=== PATIENT | female | born 1970 | race African-American/Black ===

== ENCOUNTER 2024-09-20 18:58 | Emergency (ER) | payer OTHER, SELFPAY ==
[2024-09-20 19:03] VITALS: BP 125/67; PULSE 76; TEMP 37.1; O2SAT 99; BMI 45.8
--- NOTE | 2024-09-20 19:19 | PC.NURSE ---
lower back pain and bilat hip daria reported. no bruising or swelling to sites of complaints. pt ambulated to Er rm 7 with no problem.
--- NOTE | 2024-09-20 19:26 | ED.BACK1 ---
HPI HPI - Back Pain/Injury General Chief Complaint: Back Pain/Injury Stated Complaint: BACK AND HIP PAIN, FELL A MONTH AGO Time Seen by Provider: 09/20/24 19:21 Source: patient Mode of arrival: walk-in History of Present Illness HPI Narrative: patient states she tripped outdoors about one month ago. Fell onto her left side. Pain of her lower back and left hip. Has been seeing a chiropractor for the past month and had her back and left hip adjusted. Her pain has increased. Taken Ralafen once per day and tylenol arthritis without relief Related Data Home Medications ?Medication ?Instructions ?Recorded ?Confirmed bupropion HCl 150 mg 24 hr tablet, 150 mg PO DAILY 09/20/24 09/20/24 extended release chlorthalidone 25 mg tablet 25 mg PO DAILY 09/20/24 09/20/24 ferrous sulfate 325 mg (65 mg 325 mg PO QAM 09/20/24 09/20/24 iron) tablet fexofenadine 180 mg tablet 180 mg PO QAM 09/20/24 09/20/24 montelukast 10 mg tablet 10 mg PO QPM 09/20/24 09/20/24 nabumetone 500 mg tablet 500 mg PO BID 09/20/24 09/20/24 nystatin 100,000 unit/gram topical 1 applic topical TID 09/20/24 09/20/24 powder paroxetine HCl 20 mg tablet 20 mg PO QAM 09/20/24 09/20/24 prednisone 5 mg tablet 5 mg PO QAM 09/20/24 09/20/24 tolterodine 4 mg capsule,extended 4 mg PO QAM 09/20/24 09/20/24 release 24 hr topiramate 200 mg capsule 200 mg PO BID 09/20/24 09/20/24 sprinkle,extended release 24 hr Allergies Allergy/AdvReac Type Severity Reaction Status Date / Time No Known Drug Allergies Allergy Verified 09/20/24 19:08 Review of Systems ROS Status of ROS 10 or more systems reviewed and unremarkable except as noted in history and below PFSH PFSH Social History Little interest or pleasure in doing things: not at all Feeling down, depressed, or hopeless: not at all Exam Constitutional Vital Signs, click to edit/add: Last Vital Signs Temp 98.7 F 09/20/24 19:03 Pulse 62 09/20/24 22:05 Resp 16 09/20/24 22:05 BP 147/72 H 09/20/24 22:05 Pulse Ox 96 09/20/24 22:05 O2 Del Method Room Air 09/20/24 19:03 Common normals: no apparent distress, oriented x3, no limitations, healthy appearing, alert and well nourished [facility] Common normals: normocephalic Eye Common normals: PERRL and EOMs intact bilaterally Respiratory Common normals: normal respiratory effort, no retractions, no use of accessory muscles and clear to auscultation bilaterally Cardio Common normals: regular rate, regular rhythm, S1 normal heart sound and S2 normal heart sound Back & Pelvis Other: gen. nonspecific tenderness of L-spine Extremity Other: left hip tender Neuro Common normals: oriented x3, CN's II-XII intact bilaterally, moves all extremities and no focal motor deficits Psych Appearance: grossly normal Course Vital Signs Vital signs: Vital Signs Temperature 98.7 F 09/20/24 19:03 Pulse Rate 76 09/20/24 19:03 Respiratory Rate 18 09/20/24 19:03 Blood Pressure 125/67 09/20/24 19:03 Pulse Oximetry 99 09/20/24 19:03 Oxygen Delivery Method Room Air 09/20/24 19:03 Temperature 98.7 F 09/20/24 19:03 Pulse Rate 62 09/20/24 22:05 Respiratory Rate 16 09/20/24 22:05 Blood Pressure 147/72 H 09/20/24 22:05 Pulse Oximetry 96 09/20/24 22:05 Oxygen Delivery Method Room Air 09/20/24 19:03 MDM - Back Pain/Injury MDM Narrative Medical decision making narrative: ground level fall one month ago onto her left hip area. lower back and left hip pain ever since. Has seen chiropractor several times and feels the pain is worse. Has nonspecific tenderness of her L-spine and left hip tenderness. labs WNL except elevated sed rate and CRP. xrays of L-spine and left hip/pelvis per radiology without acute findings. Patient informed of results of her labs and xrays. discharged home to follow up with her doctor for recheck Lab Data Labs: Lab Results 09/20/24 Range/Units 19:38 WBC 5.9 (4.0-11.0) 10^3/uL RBC 3.98 L (4.20-5.40) 10^6/uL Hgb 11.6 L (12.0-16.0) g/dL Hct 35.6 L (36.0-48.0) % MCV 89.4 (81.0-99.0) fL MCH 29.1 (26.7-34.0) pg MCHC 32.6 (29.9-35.2) g/dL RDW 12.4 (11.0-15.0) % Plt Count 227 (150-450) 10^3/uL MPV 10.1 (9.5-13.5) fL Neut % (Auto) 54.2 (43.0-75.0) % Lymph % (Auto) 35.8 (20.5-60.0) % Garden % (Auto) 6.0 (1.7-12.0) % Eos % (Auto) 3.6 (0.9-7.0) % Baso % (Auto) 0.2 (0.2-2.0) % Neut # (Auto) 3.2 (1.4-6.5) 10^3/uL Lymph # (Auto) 2.1 (1.2-3.8) 10^3/uL Garden # (Auto) 0.4 (0.3-0.8) 10^3/uL Eos # (Auto) 0.2 (0.0-0.7) 10^3/uL Baso # (Auto) 0.0 (0.0-0.1) 10^3/uL Abs Immat Gran (auto) 0.01 (0.00-0.03) 10^3/uL Imm/Tot Granulo (auto) 0.2 (0.0-0.5) % ESR 92 H (<=30) mm/hr Sodium 144 (136-145) mmol/L Potassium 3.6 (3.5-5.1) mmol/L Chloride 106 (98-107) mmol/L Carbon Dioxide 29.4 (21.0-32.0) mmol/L Anion Gap 12.2 BUN 11.0 (7.0-18.0) mg/dL Creatinine 0.68 (0.55-1.02) mg/dL Est GFR ( Amer) >60 (>=60 mL/min/1.73m^2) Est GFR (Non-Af Amer) >60 (>=60 mL/min/1.73m^2) BUN/Creatinine Ratio 16.2 Glucose 113 H (74-106) mg/dL Calcium 8.8 (8.5-10.1) mg/dL C-Reactive Protein 1.10 H (<=0.50) mg/dL Discharge Plan Discharge Chief Complaint: Back Pain/Injury Clinical Impression: Strain of lumbar region, Contusion of hip, left Patient Disposition: Home, Self-Care Print Language: Luxembourgish Instructions: Low Back Strain (ED), Hip Contusion (ED) Referrals: Physician,Non-Staff, MD [Physician] - 1 week
[2024-09-20 19:48] LABS: Basophils Percent Auto 0.2 % (0.2-2.0); Eosinophils Absolute Auto 0.2 10^3/uL (0.0-0.7); Eosinophils Percent Auto 3.6 % (0.9-7.0); Hematocrit 35.6 % (36.0-48.0); Hemoglobin 11.6 g/dL (12.0-16.0); Immature Granulocytes Abs Auto 0.01 10^3/uL (0.00-0.03); Immature Granulocytes Pct Auto 0.2 % (0.0-0.5); Lymphocytes Absolute Auto 2.1 10^3/uL (1.2-3.8); Lymphocytes Percent Auto 35.8 % (20.5-60.0); Mean Corpuscular HGB Conc 32.6 g/dL (29.9-35.2); Mean Corpuscular Hemoglobin 29.1 pg (26.7-34.0); Mean Corpuscular Volume 89.4 fL (81.0-99.0); Mean Platelet Volume 10.1 fL (9.5-13.5); Monocytes Absolute Auto 0.4 10^3/uL (0.3-0.8); Neutrophils Absolute Auto 3.2 10^3/uL (1.4-6.5); Neutrophils Percent Auto 54.2 % (43.0-75.0); Platelet Count 227 10^3/uL (150-450); Red Blood Count 3.98 10^6/uL (4.20-5.40); Red Cell Distribution Width 12.4 % (11.0-15.0); White Blood Count 5.9 10^3/uL (4.0-11.0)
[2024-09-20 19:52] LABS: Erythrocyte Sedimentation Rate 92 mm/hr (<=30)
[2024-09-20 19:57] LABS: Anion Gap 12.2; BUN Creatinine Ratio 16.2; Calcium 8.8 mg/dL (8.5-10.1); Carbon Dioxide 29.4 mmol/L (21.0-32.0); Chloride 106 mmol/L (98-107); Estimated GFR (African America >60 (>=60 mL/min/1.73m^2); Estimated GFR (Non-African Ame >60 (>=60 mL/min/1.73m^2); Glucose 113 mg/dL (74-106); Potassium 3.6 mmol/L (3.5-5.1); Sodium 144 mmol/L (136-145)
[2024-09-20] MEDS: METHYLPREDNISOLONE SOD SUCC PF 125 MG/2 ML VIAL IVP (21:09)
[2024-09-20 22:05] VITALS: BP 147/72; PULSE 62; O2SAT 96
[2024-09-20] MEDS: HYDROCODONE/ACET 5-325 MG TABLET 2 TAB PO (23:19)
== END 2024-09-20 23:24 | disposition home or self-care (01) ==
PROVIDERS: Emergency Provider Internal Medicine; PCP Student in an Organized Health Care Education/Training Program
DX: S39.012A Strain of muscle, fascia and tendon of lower back, initial encounter (principal); S70.02XA Contusion of left hip, initial encounter; W01.0XXA Fall on same level from slipping, tripping and stumbling without subsequent striking against object, initial encounter
CPT/HCPCS: 36415; 72100; 73502; 80048; 85025; 85652; 86140; 96374; 99285; J2919

== ENCOUNTER 2024-12-01 11:59 | Emergency (ER) | payer OTHER, SELFPAY ==
[2024-12-01] VITALS (43 sets, daily range): BP systolic 102–131; BP diastolic 55–76; PULSE 100–122; TEMP 36.8; O2SAT 94–95; BMI 41.6
--- OUTSIDE RECORDS SUMMARY | 2024-12-01 12:06 | XMS_ITS | Continuity of Care Document ---
Author Organization [facility] Address [address] [place] [address] Insurance Providers Payer Plan Claims Address Claims Phone Policy Number Group Number Relation Employer Guarantor Name Guarantor Guarantor Address Guarantor Phone [employer] [address], [place] [address] tel:[phone] Self Eun Brush [address] [place] [address] Problems Unknown Problems Results No Results Allergies, adverse reactions, alerts No known allergies and adverse reactions Medications No administered medications reported Vital Signs Date Vital Result Comment 10/03/2022 Body Height [id number] m Body Weight 127.26242489239 kg Body Mass Index 46.59 kg/m2 Social History No smoking Hx information available
--- OUTSIDE RECORDS SUMMARY | 2024-12-01 12:06 | XMS_ITS | Encounter Summary ---
Author Organization [employer] Address [id number] [address] [place] [address] Care Team Providers Care Over The Road Driver Name Role Phone Blu Dodson MD Primary Care Provider Reason for Visit * Reason Onset Date Comments Med Refill 07/24/2024 Encounter Details Date Type Department Care Team (Late st Contact Info) Description 07/24/2024 Refill [facility] [address] [place] [phone] Saravanan Frank, PABarbC [address] [facility], [facility] [address] [place] [phone] Chronic mixed headache syndrome; Migraine without status migrainosus, not intractable, unspecified migraine type Social History Tobacco Use Types Packs/Day Years Used Date Smoking Tobacco: Never Smokeless Tobacco: Never Alcohol Use Standard Drinks/Week Comments Not Currently 0 (1 standard drink = 0.6 oz pur e alcohol) Overall Financial Resource Strain (CARDIA) Answe r Date Recorded How hard is it for you to pa y for the very basics like food, housing, medical care, and heating? Not hard at all 01/02/2023 PHQ-2 Answer Date Recorded Total Score 0 11/12/2023 PRAPARE - Transportation Answer Date Re corded In the past 12 months, has l ack of transportation kept you from medical appointments or from getting medications? No 12/15 In the past 12 months, has l ack of transportation kept you from meetings, work, or from getting things needed for daily living? No 01/02/2023 Housing Instability Answer Date Recorde d Are you worried or concerned that in the next two months you may not have stable housing that you own, rent or stay in as a part of a household? No 01/02/2023 Childcare Answer Date Recorded Childcare Unknown 09/25/2018 Employment Answer Date Recorded Employment Unknown 09/25/2018 Hunger Screening Answer Date Recorded Within the past 12 months we worried whether our food would run out before we got money to buy more. Never True 05/09/2024 Within the past 12 months th e food we bought just didn't last and we didn't have money to get more. Never True 05/09/2024 Purpose - Life Answer Date Recorded Purpose and direction in life Unknown Comments No Sex and Gender Information Value Date Recorded Sex Assigned at Not on file Legal Sex Female 12:01 PM EDT Gender Identity Not on file Sexual Orientation Not on file documented as of this encounter Miscellaneous Notes * Telephone Encounter - Alice Rose RN - 07/24/2024 9:49 AM EDT Topamax and Imitrex scripts sent to [facility] on 05/09/24 with 5 refills. Too soon to fill. documented in this encounter Plan of Treatment Upcoming Encounters Date Type Department Care Team (Late st Contact Info) Description 12/16/2024 3:00 PM EDT Office Visit [facility] [place] [address] Saravanan Frank PA-C [address] [facility], [facility] [address] [place] [address] documented as of this encounter Visit Diagnoses Diagnosis Chronic mixed headache syndrome Other headache syndromes Migraine without status migrainosus, not intractable, unspecified migraine type documented in this encounter Additional Health Concerns Assessment Noted Time PHQ-9 Depression Total Score: 0 11/12/19 3:55 PM EDT A Body Mass Index follow-up plan has been documented for the patient 05/05/2024 7:55 PM EST documented as of this encounter Care Teams Over The Road Driver Relationship Specialty Start Date End Date Blu Dodson MD [address] [facility] [place] [address] PCP - General Internal Medicine 11/23/22 documented as of this encounter
--- OUTSIDE RECORDS SUMMARY | 2024-12-01 12:06 | XMS_ITS | Clinical Summary ---
Author Organization [employer] Address [facility] [id number] [address] [place] [address] Care Team Providers Care Supervisor Slashing Department Name Role Phone Blu Dodson MD Primary Care Provider [phone] Allergies No known active allergies Medications acetaminophen (TYLENOL ARTHRITIS) 650 mg 8 hr tablet Active traMADoL (ULTRAM) 50 mg tabletIndications: Osteoarthritis of knee, unspecified laterality, unspecified osteoarthritis type Take 1 tablet (50 mg total) by mouth daily as needed for pain. Max 1 per day 30 tablet 02/03/20 24 Active SUMAtriptan (IMITREX) 100 mg tabletIndications: Migraine without status migrainosus, not intractable, unspecified migraine type Take 1 tablet (100 mg total) by mouth once as needed for migraine. May repeat in 2 hours if unresolved. Do not exceed 200 mg in 24 hours. 9 tablet 5 05/09/19 25 Active fexofenadine (MARGIE) 180 mg tablet Take 1 tablet (180 mg total) by mouth in the morning. 30 tablet 2 07/25/19 25 Active predniSONE (DELTASONE) 5 mg tabletIndications: Reading's disease (CMS-HCC) Take 1 tablet (5 mg total) by mouth in the morning. 30 tablet 2 07/25/19 25 Active ferrous sulfate 325 (65 FE) mg EC tablet Take 1 tablet (325 mg total) by mouth daily with breakfast. 30 tablet 2 07/25/19 25 Active montelukast (SINGULAIR) 10 mg tablet Take 1 tablet (10 mg total) by mouth nightly. 30 tablet 2 07/25/19 25 Active fluticasone propionate (FLONASE) 50 mcg/actuation nasal spray Administer 2 sprays into each nostril in the morning. 16 mL 2 07/25/19 25 Active PARoxetine (PAXIL) 20 mg tabletIndications: Vasomotor symptoms due to menopause Take 1 tablet (20 mg total) by mouth in the morning. 30 tablet 2 07/25/19 25 Active traZODone (DESYREL) 50 mg tabletIndications: Primary insomnia Take 1 tablet (50 mg total) by mouth nightly. 90 tablet 07/25/19 25 Active chlorthalidone (HYGROTON) 25 mg tablet Take 1 tablet (25 mg total) by mouth daily. 90 tablet 07/25/19 25 Active levothyroxine (SYNTHROID, LEVOTHROID) 25 MCG tabletIndications: Hypothyroidism, unspecified type Take 1 tablet (25 mcg total) by mouth in the morning. 30 tablet 2 07/25/19 25 Active tolterodine LA (DETROL LA) 4 mg 24 hr capsule Take 1 capsule (4 mg total) by mouth in the morning. 90 capsule 2 07/25/19 25 Active topiramate 200 mg capsule,Luther forte 24hrIndications:Mi graine without status migrainosus, not intractable, unspecified migraine type Take 200 mg by mouth in the evening. 90 each 1 08/16/19 25 Active nystatin (MYCOSTATIN) powderIndications: Dermatitis Apply 1 Application topically in the morning and 1 Application at noon and 1 Application in the evening and 1 Application before bedtime. 240 g 3 10/03/19 25 Active buPROPion XL (WELLBUTRIN XL) 150 mg 24 hr tabletIndications: Dysthymia TAKE 1 TABLET BY MOUTH ONCE DAILY IN THE MORNING 90 tablet 1 10/11/19 25 Active naproxen (EC NAPROSYN) 500 mg EC tabletIndications: Sacroiliac dysfunction,Lumbar paraspinal muscle spasm TAKE 1 TABLET BY MOUTH TWICE DAILY WITH MEALS (MORNING AND BEDTIME) 60 tablet 10/21/19 25 Active tiZANidine (ZANAFLEX) 2 mg tabletIndications: Sacroiliac dysfunction,Lumbar paraspinal muscle spasm Take 1 tablet (2 mg total) by mouth every 8 (eight) hours as needed for muscle spasms. 30 tablet 11/25/19 25 Active tiZANidine (ZANAFLEX) 2 mg tabletIndications: Sacroiliac dysfunction,Lumbar paraspinal muscle spasm Take 1 tablet (2 mg total) by mouth every 8 (eight) hours as needed for muscle spasms. 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 Morbid obesity 02/05/2024 Benign intracranial hypertension 02/05/2024 Arthritis 11/13/2022 Osteoarthritis of knee 11/13/2022 Encounters Date Type Department Care Team Description 11/20/2024 Refill [facility] [address] [place] [phone] Stanley Marrufo DO Sacroiliac dysfunction; Lumbar paraspinal muscle spasm 10/18/2024 Refill [facility] [address] [place] [phone] Stanley Marrufo DO Sacroiliac dysfunction; Lumbar paraspinal muscle spasm 10/10/2024 Refill [facility] [address] [place] [phone] Melba Henderson APRN-CHRISTINA Dysthymia 10/02/2024 2:30 PM EDT Office Visit [facility] [address] [place] [phone] Stanley Marrufo DO Dermatitis (Primary Dx); Osteoarthritis of knee, unspecified laterality, unspecified osteoarthritis type; Sacroiliac dysfunction; Lumbar paraspinal muscle spasm 10/02/2024 Refill [facility] Medicine [address] [place] [phone] Yolanda Schaefer CNA 10/02/2024 Refill [facility] [address] [place] [phone] Yolanda Schaefer CNA Osteoarthritis of knee, unspecified laterality, unspecified osteoarthritis type 10/02/2024 Travel 09/23/2024 9:00 AM EDT Office Visit [facility] [address] [place] [address] Stanley Marrufo, Sacroiliac dysfunction (Primary Dx); Lumbar paraspinal muscle spasm 09/23/2024 Travel 09/19/2024 Travel from Last 3 Months Family History Medical History Relation Name Comments Alcohol abuse Father Lai Diabetes Father Lai Drug abuse Father Lai Heart attack Father Lai Heart block Father Lai Arthritis Maternal Grandfather Keith Arthritis Maternal Grandmother Misa Hypertension Maternal Grandmother Misa Alcohol abuse Mother Thelma Kidney cancer Paternal Grandfather Breast cancer Neg Hx Relation Name Status Comments Father Lai Maternal Grandfather Keith Alive Maternal Grandmother Misa Alive Mother Thelma Alive Paternal Grandfather Social History Tobacco Use Types Packs/Day Years Used Date Smoking Tobacco: Never Smokeless Tobacco: Never Tobacco Cessation:Counseling Given: Not Answered Alcohol Use Standard Drinks/Week Comments Not Currently 0 (1 standard drink = 0.6 oz pur e alcohol) Overall Financial Resource Strain (CARDIA) Answe r Date Recorded How hard is it for you to pa y for the very basics like food, housing, medical care, and heating? Not hard at all 01/02/2023 PHQ-2 Answer Date Recorded Total Score 0 10/02/2024 PRAPARE - Transportation Answer Date Re corded [...] got money to buy more. Never True 10/02/2024 Within the past 12 months th e food we bought just didn't last and we didn't have money to get more. Never True 10/02/2024 Purpose - Life Answer Date Recorded Purpose and direction in life Unknown Comments No Sex and Gender Information Value Date Recorded Sex Assigned at Not on file Legal Sex Female 12:01 PM EDT Gender Identity Not on file Sexual Orientation Not on file Last Filed Vital Signs Vital Sign Reading Time Taken Comments Blood Pressure 120/80 10/02/2024 2:37 PM EDT Pulse 91 10/02/2024 2:37 PM EDT Temperature 36.7 C (98.1 F) 10/02/2024 2:37 PM EDT Respiratory Rate 20 01/12/2023 3:17 PM EDT Oxygen Saturation 98% 10/02/2024 2:37 PM EDT Inhaled Oxygen Concentration - - Weight 120 kg (264 lb 9.6 oz) 10/02/2024 2:37 PM EDT Height 162.6 cm (5' 4 ) 08/15/2024 11:38 AM EDT Body Mass Index 45.42 08/15/2024 11:38 AM EDT Plan of Treatment Upcoming Encounters Date Type Department Care Team (Late st Contact Info) Description 12/16/2024 3:00 PM EDT Office Visit [facility] [place] [address] [place] [address] Saravanan Frank, PABarbC [address] [facility] [address] [place] [phone] Health Maintenance Due Date Last Done Comments DTaP,Tdap and Td Vaccines (1 - Tdap) 11/28/1991 Zoster (Shingles) Vaccine (1 of 2) 2022 Pap Smear 12/01/2024 12/01/2021, 12/01/2021 Influenza Vaccine 12/15/2024 Adult BMI Follow Up Plan 02/04/2025 02/05/2024 Adult BMI Screening 10/02/2025 10/02/2024 Depression Screening 10/02/2025 10/02/2024 Tobacco Screening 10/02/2025 10/02/2024 Medical Devices Not on file Procedures Procedure Name Priority Date/Time Associated Diagnosis Comments HIGH RISK HPV W/BILLY Routine 12/01/2021 1:10 PM EDT Cervical smear, as part of routine gynecological examination from Last 3 Months or Most Recently Relevant to Health Maintenance Results * High risk HPV w/billy (12/01/2021 1:10 PM EDT) Hpv specimen type ThinPrep 12/02/2021 1:08 PM EDT [facility] Hpv 16 Negative Negative^N egative 12/05/2021 1:12 PM EDT [facility] Hpv 18 Negative Negative^N egative 12/05/2021 1:12 PM EDT [facility] Other high risk hpv Negative Negative^N egative 12/05/2021 1:12 PM EDT [facility] Comment: HPV types 31,33,35,39,45,52,56,58,59,66 and 68 DNA were undetectable. THINP 12/01/2021 1:10 PM EDT 12/01/2021 1:10 PM EDT Rebecca Shelby DIRECTOR OF CHANNEL [employer]ING-[facility] LAB BLOOD ORDERABLES F inal Result [facility] [address] [facility], [place] [address] [facility] [address] [facility] [place] [address] from Last 3 Months or Most Recently Relevant to Health Maintenance Insurance [employer] Care Teams Supervisor Slashing Department Relationship Specialty Start Date End Date Blu Dodson MD [address] [place] [address] PCP - General Internal Medicine 11/23/22
--- OUTSIDE RECORDS SUMMARY | 2024-12-01 12:06 | XMS_ITS | Encounter Summary ---
Author Organization [facility] Address [address] [place] [address] Care Team Providers Care Director Of Online Merchandising Name Role Phone Lai Amin MD Primary Care Provider Reason for Visit * Reason Comments Med Refill Encounter Details Date Type Department Care Team ([facility] st Contact Info) Description 09/26/2022 Refill [facility] [address] [place] [address] Bala Reyez DO [address] [facility] [address] [place] [address] Social History Tobacco Use Types Packs/Day Years Used Date Smoking Tobacco: Never Assessed Comments Unknown Sex and Gender Information Value Date Recorded Sex Assigned at Not on file Legal Sex Female 10:13 PM EDT Gender Identity Not on file Sexual Orientation Not on file documented as of this encounter Plan of Treatment Not on file documented as of this encounter Visit Diagnoses Not on filedocumented in this encounter Care Teams Director Of Online Merchandising Relationship Specialty Start Date End Date Lai Amin MD PCP - General Family Medicine 11/13/22 documented as of this encounter
--- OUTSIDE RECORDS SUMMARY | 2024-12-01 12:06 | XMS_ITS | Encounter Summary ---
Author Organization [facility] Address [address] [facility] [place] [address] Care Team Providers Care Candy Separator Enrobing Name Role Phone Lai Amin MD Primary Care Provider [phone] Reason for Visit * Reason Comments New Med Request Encounter Details Date Type Department Care Team ([facility] st Contact Info) Description 11/07/2022 Refill [facility] [address] [place] [address] Bala Reyez DO [address] [facility] [address] [place] [address] Social History Tobacco Use Types Packs/Day Years [...] on filedocumented in this encounter Care Teams Candy Separator Enrobing Relationship Specialty Start Date End Date Lai Amin MD PCP - General Family Medicine 11/13/22 documented as of this encounter
--- OUTSIDE RECORDS SUMMARY | 2024-12-01 12:06 | XMS_ITS | Encounter Summary ---
Author Organization [facility] Address [address] [facility] [address] Care Team Providers Care Occupational Therapist Assistants Name Role Phone Lai Amin MD Primary Care Provider [phone] Encounter Details Date Type Department Care Team ([facility] st Contact Info) Description 11/22/[address] [facility] [address] [place] [address] Harpreet Matias NP [address] [place], [place] [phone] Social History Tobacco Use Types Packs/Day Years Used Date Smoking Tobacco: Never Smokeless Tobacco: Never Alcohol Use Standard Drinks/Week Comments Not Currently 0 (1 standard drink = 0.6 oz pur e alcohol) Comments Unknown Sex and Gender Information Value Date Recorded Sex Assigned at Not on file Legal Sex Female 10:13 PM EDT Gender Identity Not on file Sexual Orientation Not on file documented as of this encounter Plan of Treatment Not on file documented as of this encounter Visit Diagnoses Not on filedocumented in this encounter Care Teams Occupational Therapist Assistants Relationship Specialty Start Date End Date Lai Amin MD PCP - General Family Medicine 11/13/22 documented as of this encounter
--- OUTSIDE RECORDS SUMMARY | 2024-12-01 12:06 | XMS_ITS | Encounter Summary ---
Author Organization [employer] Sys [employer] Address [id number] [address] [place] [address] Care Team Providers Care Swimming Professor Name Role Phone Blu Dodson MD Primary Care Provider [phone] Encounter Details Date Type Department Care Team ([facility] Contact Info) Description 08/16/2023 [facility] [address] [place] [address] Nehal Marrero CMA Social History Tobacco Use Types Packs/Day Years [...] and heating? Not hard at all 01/02/2023 PRAPARE - Transportation Answer Date Re corded [...] got money to buy more. Never True 07/30/2023 Within the past 12 months th e food we bought just didn't last and we didn't have money to get more. Never True 07/30/2023 Purpose - Life Answer Date Recorded Purpose and direction in life Unknown Comments No Sex and Gender Information Value Date Recorded Sex Assigned at Not on file Legal Sex Female 12:01 PM EDT Gender Identity Not on file Sexual Orientation Not on file documented as of this encounter Miscellaneous Notes * Telephone Encounter - Nehal Marrero CMA - 08/16/2023 9:27 AM EDT ----- Message from MARCIN Rueda sent at 08/15/2023 5:14 PM EDT ----- Abnormal result I would like to send referral to neurology, for possible normal pressure hydrocephalus. Please let me know if she has a preference. * Telephone Encounter - Nehal Marrero CMA - 08/16/2023 9:27 AM EDT Called patient to let her know about results, she verbalized understanding is okay with the referral for neurology she would like to stay in [place] within [facility]. * Telephone Encounter - MARCIN Rueda - 08/16/2023 9:27 AM EDT Referral placed documented in this encounter Plan of Treatment Upcoming Encounters Date Type Department Care Team (Late st Contact Info) Description 12/16/2024 3:00 PM EDT Office Visit [facility] [place] [address] [address] Saravanan Frank, PA-C [address] [facility], [address] [place] [phone] documented as of this encounter Visit Diagnoses Not on filedocumented in this encounter Care Teams Swimming Professor Relationship Specialty Start Date End Date Blu Dodson MD [address], [place] [address] PCP - General Internal Medicine 11/23/22 documented as of this encounter
--- OUTSIDE RECORDS SUMMARY | 2024-12-01 12:06 | XMS_ITS | Encounter Summary ---
Author Organization [facility] Address [address] [facility] [place] [address] Care Team Providers Care Derivatives Trader Name Role Phone Lai Amin MD Primary Care Provider [phone] Reason for Visit * Reason Comments New Med Request Encounter Details Date Type Department Care Team ([facility] st Contact Info) Description 10/03/2022 Refill [facility] [address] [place] [address] Bala Reyez DO [address] [facility] [address] [place] [address] Social History Tobacco Use Types Packs/Day Years [...] on filedocumented in this encounter Care Teams Derivatives Trader Relationship Specialty Start Date End Date Lai Amin MD PCP - General Family Medicine 11/13/22 documented as of this encounter
--- OUTSIDE RECORDS SUMMARY | 2024-12-01 12:06 | XMS_ITS | Encounter Summary ---
Author Organization [employer] Sys tem Address [id number] [address] [place] [address] Care Team Providers Care President Finance Company Name Role Phone Blu Dodson MD Primary Care Provider [phone] Reason for Visit * Reason Comments Med Refill Encounter Details Date Type Department Care Team ([facility] st Contact Info) Description 02/02/2024 Refill [facility] [address] [place] [address] Melba Henderson, TENNILLE-SUPERVISOR [employer] [address], [place] [address] Social History Tobacco Use Types Packs/Day Years [...] got money to buy more. Never True 11/12/2023 Within the past 12 months th e food we bought just didn't last and we didn't have money to get more. Never True 11/12/2023 Purpose - Life Answer Date Recorded Purpose and direction in life Unknown Comments No Sex and Gender Information Value Date Recorded Sex Assigned at Not on file Legal Sex Female 12:01 PM EDT Gender Identity Not on file Sexual Orientation Not on file documented as of this encounter Plan of Treatment Upcoming Encounters Date Type Department Care Team (Late st Contact Info) Description 12/16/2024 3:00 PM EDT Office Visit [facility] [place] [address] [address] Saravanan Frank, PABarbC [address] [facility], [address] [place] [address] documented as of this encounter Visit Diagnoses Not on filedocumented in this encounter Additional Health Concerns Assessment Noted Time PHQ-9 Depression Total Score: 0 11/12/19 24 3:55 PM EDT documented as of this encounter Care Teams President Finance Company Relationship Specialty Start Date End Date Blu Dodson MD [address] [facility] [facility] [address], [place] [address] PCP - General Internal Medicine 11/23/22 documented as of this encounter
--- OUTSIDE RECORDS SUMMARY | 2024-12-01 12:06 | XMS_ITS | Encounter Summary ---
Author Organization [facility] Address [id number] [address] [place] [address] Care Team Providers Care Staff Anesthesiologist Name Role Phone Blu Dodson MD Primary Care Provider [phone] Reason for Visit * Reason Onset Date Comments Med Refill 10/02/2024 Encounter Details Date Type Department Care Team ([facility] st Contact Info) Description 10/02/2024 Refill [facility] [address] [place] [address] [place] [address] Yolanda Schaefer CNA Social History Tobacco Use Types Packs/Day Years [...] PM EDT Office Visit [facility] [place] [address] Saravanan Frank, PABarbC [address], [address] [place] [address] documented as of this encounter Visit Diagnoses Not on filedocumented in this encounter Additional Health Concerns Assessment Noted Time PHQ-9 Depression Total Score: 0 10/03/19 25 2:36 PM EDT A Body Mass Index follow-up plan has been documented for the patient 05/05/2024 7:55 PM EST documented as of this encounter Care Teams Staff Anesthesiologist Relationship Specialty Start Date End Date Blu Dodson MD [address] [facility] [place] [address] PCP - General Internal Medicine 11/23/22 documented as of this encounter
--- OUTSIDE RECORDS SUMMARY | 2024-12-01 12:06 | XMS_ITS | Encounter Summary ---
Author Organization [employer] Address [id number] [address] [place] [address] Care Team Providers Care Colon Therapist Name Role Phone Blu Dodson MD Primary Care Provider [phone] Encounter Details Date Type Department Care Team ([facility] Contact Info) Description 12/02/2021 Telephone [facility] [address] [place] [address] Antoinette Odonnell CMA Social History Tobacco Use Types Packs/Day Years Used Date Smoking Tobacco: Never Smokeless Tobacco: Never Alcohol Use Standard Drinks/Week Comments Not Currently 0 (1 standard drink = 0.6 oz pur e alcohol) Childcare Answer Date Recorded Childcare Unknown 09/25/2018 Employment Answer Date Recorded Employment Unknown 09/25/2018 Purpose - Life Answer Date Recorded Purpose and direction in life Unknown Comments Unknown Sex and Gender Information Value Date Recorded Sex Assigned at Not on file Legal Sex Female 12:01 PM EDT Gender Identity Not on file Sexual Orientation Not on file COVID-19 Exposure Response Date Recorded In the last month, have you been in contact with someone who was confirmed or suspected to have Coronavirus / COVID-19? No / Unsure 12/01/2021 10:57 AM EDT documented as of this encounter Miscellaneous Notes * Telephone Encounter - Antoinette Odonnell CMA - 12/02/2021 9:23 AM EDT Patient called in asking about progesterone that you prescribed. The order says 12 pills and to take nightly. Is she only supposed to take 12 pills? Please advise. * Telephone Encounter - WALDEMAR Rahman - 12/02/2021 9:23 AM EDT I changed that order yesterday but somehow it di not change when sent. I resent it. She is to take one every day so she has 30 with 5 refills. * Telephone Encounter - Antoinette Odonnell CMA - 12/02/2021 9:23 AM EDT Patient has been notified and verbalized understanding documented in this encounter Plan of Treatment Upcoming Encounters Date Type Department Care Team (Late st Contact Info) Description 12/16/2024 3:00 PM EDT Office Visit [facility] [place] [address] [place] [address] Saravanan Frank, PA-C [address], [address] [place] [address] documented as of this encounter Visit Diagnoses Not on filedocumented in this encounter Care Teams Colon Therapist Relationship Specialty Start Date End Date Blu Dodson MD [address] [facility] [address] [place], [place] [id number] PCP - General Internal Medicine 11/23/22 documented as of this encounter
--- OUTSIDE RECORDS SUMMARY | 2024-12-01 12:06 | XMS_ITS | Clinical Summary ---
Author Organization [facility] Address [address] [place] [address] Care Team Providers Care Motor Boss Name Role Phone Lai Amin MD Primary Care Provider [phone] Allergies No known active allergies Medications tolterodine LA (Detrol LA) 4 MG 24 hr capsule 09/15/2022 Active spironolactone (Aldactone) 25 MG tablet 09/04/2022 Active progesterone 100 MG capsule Take 100 mg by mouth at bedtime. 07/05/2022 Active Nyamyc 285894 UNIT/GM powder 11/07/2022 Acti ve hydroCHLOROthia zide (HYDRODiuril) 25 MG tablet 1 (one) time each day at the same time. Active buPROPion XL (Wellbutrin XL) 150 MG 24 hr tablet Take 150 mg by mouth in the morning. Active cetirizine (ZyrTEC) 10 MG tablet Take 10 mg by mouth in the morning. 09/21/2023 Active chlorthalidone (Hygroton) 25 MG tablet Take 25 mg by mouth Daily Active ferrous sulfate 325 (65 Fe) MG EC tablet Take 1 tablet by mouth in the morning. Take with meals. Active fexofenadine (Delfina) 180 MG tablet Take 180 mg by mouth in the morning. 02/03/2024 Active fluticasone (Flonase) 50 MCG/ACT nasal spray USE 2 SPRAY(S) IN EACH NOSTRIL IN THE MORNING Active levothyroxine (Synthroid, Levoxyl) 25 MCG tablet Take 25 mcg by mouth in the morning. Active methylPREDNISol one (Medrol Dospak) 4 MG tablets Take 4 mg by mouth in the morning. 11/12/2023 Active montelukast (Singulair) 10 MG tablet Take 10 mg by mouth at bedtime Active nabumetone (Relafen) 500 MG tablet TAKE 1 TABLET BY MOUTH TWICE DAILY ( MORNING AND BEFORE BEDTIME) 04/23/2024 Active PARoxetine (Paxil) 20 MG tablet Take 20 mg by mouth in the morning. Active SUMAtriptan (Imitrex) 100 MG tablet Take 100 mg by mouth 1 (one) time if needed 05/09/2024 Active topiramate 50 MG tablet Take 1 tablet (50 mg) every morning and 2 tablets (100 mg) every evening 05/09/2024 Active traMADol (Ultram) 50 MG tablet TAKE 1 TABLET BY MOUTH ONCE DAILY NEEDED FOR PAIN . DO NOT EXCEED 1 PER 24 HOURS 02/06/2024 Active Active Problems Problem Noted Date Diagnosed Date Arthritis 11/13/2022 Difficulty walking 11/13/2022 Osteoarthritis of knee 11/13/2022 Primary osteoarthritis 11/13/2022 Family History Medical History Relation Name Comments Diabetes Father Heart disease Father Relation Name Status Comments Father Alive Mother Alive Social History Tobacco Use Types Packs/Day Years [...] Sign Reading Time Taken Comments Blood Pressure - - Pulse - - Temperature - - Respiratory Rate - - Oxygen Saturation - - Inhaled Oxygen Concentration - - Weight 122 kg (270 lb) 05/14/2024 4:19 PM EST Height 165.1 cm (5' 5 ) 05/14/2024 4:19 PM EST Body Mass Index 44.93 05/14/2024 4:19 PM EST Plan of Treatment Not on file Insurance [employer] Care Teams Motor Boss Relationship Specialty Start Date End Date Lai Amin MD PCP - General Family Medicine 11/13/22
--- OUTSIDE RECORDS SUMMARY | 2024-12-01 12:06 | XMS_ITS | Encounter Summary ---
Author Organization [facility] Address [address] [place] [address] Care Team Providers Care Type Casting Machine Operator Name Role Phone Lai Amin MD Primary Care Provider [phone] Reason for Visit * Reason Comments Med Refill Encounter Details Date Type Department Care Team ([facility] st Contact Info) Description 12/19/2022 Refill General acute hospital Orthopaedics [address] [facility] [address] Harpreet Matias, DRAIN TILE PRESS OPERATOR [address] [place], [place] [phone] Left knee pain, unspecified chronicity Social History Tobacco Use Types Packs/Day Years [...] encounter Miscellaneous Notes * Telephone Encounter - CECILLE Valle - 12/19/2022 3:34 PM EDT Needs to have labs done documented in this encounter Plan of Treatment Not on file documented as of this encounter Visit Diagnoses Diagnosis Left knee pain, unspecified chronicity documented in this encounter Care Teams Type Casting Machine Operator Relationship Specialty Start Date End Date Lai Amin MD PCP - General Family Medicine 11/13/22 documented as of this encounter
--- OUTSIDE RECORDS SUMMARY | 2024-12-01 12:06 | XMS_ITS | Encounter Summary ---
Author Organization [employer] Address [id number] [address] [place] [address] Care Team Providers Care Warping Machine Operator Name Role Phone Blu Dodson MD Primary Care Provider [phone] Encounter Details Date Type Department Care Team (Late st Contact Info) Description 04/23/2024 Orders Only [facility] [address] [place] [address] Blu Dodson MD [address], [place] [address] Social History Tobacco Use Types Packs/Day Years [...] PM EDT Office Visit [facility] [place] [address] Saravanan Frank, PA-C [address], [address] [place] [address] documented as of this encounter Visit Diagnoses Not on filedocumented in this encounter Additional Health Concerns Assessment Noted Time PHQ-9 Depression Total Score: 0 11/12/19 24 3:55 PM EDT A Body Mass Index follow-up plan has been documented for the patient 05/05/2024 7:55 PM EST documented as of this encounter Care Teams Warping Machine Operator Relationship Specialty Start Date End Date Blu Dodson MD [address] [facility] [address], [place] [address] PCP - General Internal Medicine 11/23/22 documented as of this encounter
--- OUTSIDE RECORDS SUMMARY | 2024-12-01 12:08 | XMS_ITS | Encounter Summary ---
Author Organization [facility] Address [facility]-[id number] [address] [place] [address] Care Team Providers Care Hand Lens Polisher Name Role Phone Blu Dodson MD Primary Care Provider Reason for Visit * Reason Onset Date Comments Med Refill 10/02/2024 Encounter Details Date Type Department Care Team (Late st Contact Info) Description 10/02/2024 Refill [facility] [address] [place] [address] [place] [address] Yolanda Schaefer CNA Osteoarthritis of knee, unspecified laterality, unspecified osteoarthritis type Social History Tobacco Use Types Packs/Day [...] PM EDT Office Visit [facility] [place] [address] Saravanan Frank, PA-C [address], [facility] [address] [place] [address] documented as of this encounter Visit Diagnoses Diagnosis Osteoarthritis of knee, unspecified laterality, unspecified osteoarthritis type documented in this encounter Additional Health Concerns Assessment Noted Time PHQ-9 Depression Total Score: 0 10/03/19 25 2:36 PM EDT A Body Mass Index follow-up plan has been documented for the patient 05/05/2024 7:55 PM EST documented as of this encounter Care Teams Hand Lens Polisher Relationship Specialty Start Date End Date Blu Dodson MD [address] [facility] [place] [address] PCP - General Internal Medicine 11/23/22 documented as of this encounter
--- OUTSIDE RECORDS SUMMARY | 2024-12-01 12:08 | XMS_ITS | Encounter Summary ---
Author Organization [facility] Address [facility] [id number] [address] [place] [address] Care Team Providers Care Special Education Bus Driver Name Role Phone Blu Dodson MD Primary Care Provider [phone] Reason for Visit * Reason Onset Date Comments Med Refill 07/24/2024 Encounter Details Date Type Department Care Team (Late st Contact Info) Description 07/24/2024 Refill [facility] [address] [place] [address] Melba Henderson, TENNILLE-PRINTING GRAY CLOTH TENDER [address] [place], [place] [address] Social History Tobacco Use Types [...] PM EDT Office Visit [facility] [place] [address] [place] [address] Saravanan Frank, GENA [address] [place] [address], [address] [place] [address] documented as of this encounter Visit Diagnoses Not on filedocumented in this encounter Additional Health Concerns Assessment Noted Time PHQ-9 Depression Total Score: 0 11/12/19 24 3:55 PM EDT A Body Mass Index follow-up plan has been documented for the patient 05/05/2024 7:55 PM EST documented as of this encounter Care Teams Special Education Bus Driver Relationship Specialty Start Date End Date Blu Dodson MD [address] [facility], [place] [address] PCP - General Internal Medicine 11/23/22 documented as of this encounter
--- OUTSIDE RECORDS SUMMARY | 2024-12-01 12:08 | XMS_ITS | Encounter Summary ---
Author Organization [employer] Sys [employer] Address [id number] [address] 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 She has not seen our office since October can we pleaseget her scheduled for a wellness thank you. 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 Hypothyroidism, unspecified type Primary insomnia Persistent disorder of initiating or maintaining sleep Osteoarthritis of knee, unspecified laterality, unspecified osteoarthritis type Vasomotor symptoms due to menopause Dysthymia Dysthymic disorder documented in this encounter Additional Health Concerns Assessment Noted Time PHQ-9 Depression Total Score: 0 11/12/19 24 3:55 PM EDT A Body Mass Index follow-up plan has been documented for the patient 05/05/2024 7:55 PM EST documented as of this encounter Care Teams Equipment Operation Instructor Relationship Specialty Start Date End Date Blu Dodson MD [address] [facility] [address] PCP - General Internal Medicine 11/23/22 documented as of this encounter
--- NOTE | 2024-12-01 12:35 | ECG_ITS ---
The [facility] Test Date: 2024-12-01 Pat Name: DIAN YUN Department: Room: - Gender: Female Materials Specialist: : 1970 Requested By: [id number] Order Number: [id number] Reading MD: MICHELLE VITALE M.D. Measurements Intervals [place] Rate: 112 P: 61 ND: 138 QRS: 17 QRSD: 94 T: 270 QT: 290 QTc: 357 Interpretive Statements 1120 Sinus tachycardia 1570 with occasional ventricular premature complexes [address] depression 4664 Twave abnormality, possible inferior ischemia 8305 Short QTc interval 9150 abnormal ECG No previous ECG available for comparison Electronically Signed On 12-01-2024 17:50:17 EDT by MICHELLE VITALE M.D.
--- NOTE | 2024-12-01 12:35 | CT_ITS ---
The [address] [address] Patient Name: DIAN YUN MRN: [id number] date: 1970 Sex: F Assigned Patient Location: ER Current Patient Location: ER Accession/Order Number: [id number] Exam Date: 12/01/2024 12:56 Report Date: 12/01/2024 13:01 At the request of: ARISTEO LOMBARDO DO Procedure: CT head/brain wo con CT head/brain wo con 12/01/2024 12:43 PM SIGNS AND SYMPTOMS: Nausea and vomiting, headache TECHNIQUE:Multi-detector CT axial slices of the brain were obtained without IV contrast. CT was performed with one or more of the following dose reduction techniques: Automated exposure control, adjustment of the mA and/or kV according to patient size, or use of iterative reconstruction technique. COMPARISON: None. FINDINGS: There is no shift of the midline structures, acute intracranial bleeding, mass effects, or evidence of acute ischemia. The ventricular system is normal in size. The brainstem and the cerebellum are unremarkable. The visualized intraorbital contents, the visualized paranasal sinuses, and the infratemporal soft tissues show no acute abnormality. The osseous structures in the skull base and the calvarium show no abnormality. CT/CT head/brain wo con IMPRESSION: Normal noncontrasted CT brain. Impression dictated by: Jose Luis Grubbs M.D. 12/01/2024 1:01 PM Dictation Location: [facility] Electronically authenticated by: [id number] Y Date: 12/01/2024 13:01
--- NOTE | 2024-12-01 12:37 | XR_ITS ---
The [place] [id number] Patient Name: DIAN YUN MRN: [id number] date: 1970 Sex: F Assigned Patient Location: ER Current Patient Location: ER Accession/Order Number: [id number] Exam Date: 12/01/2024 13:01 Report Date: 12/01/2024 13:03 At the request of: ARISTEO LOMBARDO DO Procedure: XR chest 2V XR chest 2V 12/01/2024 12:56 PM SIGNS AND SYMPTOMS: ^altered PROTOCOL: Frontal radiograph of the chest COMPARISON: None FINDINGS: The trachea is midline. The heart and mediastinal structures are within normal limits. There is platelike scarring or atelectasis at the right lung base. No focal consolidation otherwise. The bony thorax is intact. XR/XR chest 2V IMPRESSION: There is platelike scarring or atelectasis at the right lung base. No focal consolidation otherwise. Impression dictated by: Jose Luis Grubbs M.D. 12/01/2024 1:03 PM Dictation Location: [place] [address] Electronically authenticated by: [id number] Y Date: 12/01/2024 13:03
[2024-12-01] MEDS: 0.9 % SODIUM CHLORIDE 1,000 ML 1000 ML IV (12:58)
[2024-12-01 12:59] LABS: Hematocrit 34.9 % (36.0-48.0); Hemoglobin 11.6 g/dL (12.0-16.0); Immature Granulocytes Abs Auto 0.04 10^3/uL (0.00-0.03); Immature Granulocytes Pct Auto 0.4 % (0.0-0.5); Lymphocytes Absolute Auto 0.8 10^3/uL (1.2-3.8); Mean Corpuscular HGB Conc 33.2 g/dL (29.9-35.2); Mean Corpuscular Hemoglobin 29.0 pg (26.7-34.0); Mean Corpuscular Volume 87.3 fL (81.0-99.0); Platelet Count 194 10^3/uL (150-450); Red Blood Count 4.00 10^6/uL (4.20-5.40); White Blood Count 9.7 10^3/uL (4.0-11.0)
[2024-12-01 13:26] LABS: Alanine Aminotransferase 34 U/L (14-59); Albumin Globulin Ratio 0.4; Albumin Level 2.6 g/dL (3.4-5.0); Alkaline Phosphatase 73 U/L (46-116); Anion Gap 12.1; Aspartate Amino Transferase 38 U/L (15-37); Blood Urea Nitrogen 20.0 mg/dL (7.0-18.0); Calcium 9.0 mg/dL (8.5-10.1); Carbon Dioxide 23.8 mmol/L (21.0-32.0); Chloride 102 mmol/L (98-107); Estimated GFR (African America 39 (>=60 mL/min/1.73m^2); Estimated GFR (Non-African Ame 32 (>=60 mL/min/1.73m^2); Globulin 5.8 g/dL; Glucose 209 mg/dL (74-106); Magnesium 1.5 mg/dL (1.8-2.4); Sodium 135 mmol/L (136-145); TSH W/ REFLEX FT4 0.362 uIU/mL (0.358-3.740); Total Protein 8.4 g/dL (6.4-8.2)
[2024-12-01 13:36] LABS: Potassium 2.9 mmol/L (3.5-5.1)
[2024-12-01 14:10] LABS: SARS-CoV-2 Ag NEGATIVE (NEGATIVE)
[2024-12-01] MEDS: POTASSIUM BICARBONATE/CIT 25 MEQ TABLET EFF 50 MEQ PO (14:34)
[2024-12-01] MEDS: MAGNESIUM SULFATE IN WATER 2 GM/50 ML PREMIX IV (14:34)
[2024-12-01] MEDS: HYDROCORTISONE SODIUM SUCC PF 100 MG/2 ML VIAL IVP (14:34)
--- NOTE | 2024-12-01 15:07 | ED.GENADUL1 ---
HPI HPI - General Adult General Chief complaint: Neuro Symptoms/Deficit Stated complaint: WEAKNESS,VOMITING Time Seen by Provider: 12/01/24 12:26 Source: patient Mode of arrival: walk-in Limitations: no limitations History of Present Illness HPI narrative: The patient is a 54-year-old with a known past medical history of Jersey's disease and hypertension who presents to the emergency department with altered level of consciousness. Her last known well was approximately 16:30 on November 29, 2024. The patient is arriving greater than 24 hours after the altered level of consciousness. The patient does not have any focal weakness or symptoms. According to the patient the patient states that she came home from [place] and was very tired and she took a nap and when she woke up she was altered. Patient's family provides a different story. They tell me that at 1630 the patient had complained of a migraine headache. The patient does have a history of migraine cephalgia. They stated that she started become nauseated because of the headache and then vomited numerous times. The patient then went down for a nap and when she woke up she was confused. The patient remained confused yesterday but is progressively gotten worse. She is having difficult time walking she is having a difficult time seeing. Patient has not been taking her medications. She still slightly nauseated. Patient has never had a CVA before. No history of myocardial infarctions. No premature strokes in the family. Patient does not have a history of atrial fibrillation or coagulopathies Related Data Home Medications ?Medication ?Instructions ?Recorded ?Confirmed bupropion HCl 150 mg 24 hr tablet, 150 mg PO DAILY 09/20/24 12/01/24 extended release chlorthalidone 25 mg tablet 25 mg PO DAILY 09/20/24 12/01/24 nystatin 100,000 unit/gram topical 1 applic topical TID 09/20/24 12/01/24 powder topiramate 200 mg capsule 200 mg PO QAM 09/20/24 12/01/24 sprinkle,extended release 24 hr acetaminophen 325 mg tablet (Aphen) 650 mg PO Q6H PRN fever or pain 12/01/24 12/01/24 ferrous sulfate 325 mg (65 mg 325 mg PO DAILY 12/01/24 12/01/24 iron) tablet,delayed release fexofenadine 180 mg tablet 180 mg PO Q24H 12/01/24 12/01/24 levothyroxine 25 mcg tablet 25 mcg PO DAILY 12/01/24 12/01/24 montelukast 10 mg tablet 10 mg PO DAILY 12/01/24 12/01/24 nabumetone 500 mg tablet 500 mg PO BID 12/01/24 12/01/24 paroxetine HCl 20 mg tablet 20 mg PO DAILY 12/01/24 12/01/24 prednisone 5 mg tablet 5 mg PO DAILY 12/01/24 12/01/24 tolterodine 4 mg capsule,extended 4 mg PO Q24H 12/01/24 12/01/24 release 24 hr topiramate 50 mg tablet 200 mg PO HS 12/01/24 12/01/24 trazodone 50 mg tablet 50 mg PO BEDTIME 12/01/24 12/01/24 Previous Rx's ?Medication ?Instructions ?Recorded cephalexin 500 mg tablet 500 mg PO QID 10 days #40 tabs 12/01/24 ondansetron 4 mg disintegrating 4 mg PO Q6H PRN nausea and 12/01/24 tablet vomiting #14 tabs Allergies Allergy/AdvReac Type Severity Reaction Status Date / Time No Known Drug Allergies Allergy Verified 12/01/24 12:20 Opioid HPI Opioid Management Most Recent Opioid Data: Ur Phencyclidine Scrn, (NEGATIVE) Negative Today, 16:10 Review of Systems ROS Narrative 10 Systems were reviewed, and unless noted in the HPI, all other systems are reviewed, unremarkable, or noncontributory. 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 Prior to touching the patient, I asked for consent to examine the patient.? General: Alert and oriented, well nourished, mild distress. Eye: PERRL, EOMI, normal conjunctiva. HENT: Normocephalic, normal hearing, moist oral mucosa, no scleral icterus, no sinus tenderness. Neck: Supple, non-tender, no carotid bruits, no JVD, no lymphadenopathy. Lungs: Clear to auscultation and percussion, non-labored respiration. No rhonchi, rales, wheezing Heart: Normal rate, regular rhythm, no murmur, gallop or edema. Abdomen: Soft, non-tender, non-distended, normal bowel sounds, no masses. Musculoskeletal: Normal range of motion and strength, no tenderness or swelling. Skin: Skin is warm, dry and pink, no rashes or lesions. Neurologic: Awake, alert, and oriented X3, CN II-XII intact. NIH stroke scale 0. Patient however confabulates when you ask her open-ended questions. Psychiatric: Cooperative, appropriate mood and affect.? Following the conclusion of the examination, I have washed my hands thoroughly after removing examination gloves. Constitutional Vital Signs, click to edit/add: Last Vital Signs Temp 98.3 F 12/01/24 12:11 Pulse 100 H 12/01/24 18:11 Resp 20 12/01/24 18:11 BP 102/55 12/01/24 18:11 Pulse Ox 95 12/01/24 18:11 O2 Del Method Room Air 12/01/24 18:11 Course Course Hospital Course: In summary, the patient is a 54-year-old female who presents to the emergency department with altered level of consciousness after a bout of vomiting 2 days ago. The patient has not had any improvement in her symptoms. In fact its gotten worse. What more concerning is that the patient has a history of Jersey's disease and has been nauseated and has not been taking any of her medications properly. Patient was immediately given a stress dose of hydrocortisone in the emergency department and a liter of fluid. Patient also received antiemetic. Reevaluation(s) Reevaluation #1: Contacted [facility] and spoke to Dr. Weiss. He is a stroke neurologist at [facility]. He stated that their facility is a small community hospital they have no in-house neurologist after 5 PM so he would be unable to accept the patient tonight. He recommended that I talk to telestroke at [facility]. Time: 16:32 Reevaluation #2: I spoke with telestroke at [facility] . He looked at my CT images and did not see any evidence of hemorrhage or ischemic stroke. He stated that the confusion would not be explained by a posterior cerebellar stroke which was brought about because I told him that the patient had an ataxic gait. He really felt that the confusion, ataxia, and migraine were likely all related in the absence of any focal neurologic deficit. He did declined the transfer of the patient to their facility as a stroke, and suggested that I talk to general neurology. Time: 16:37 Reevaluation #3: I spoke with Dr. Jones at our facility. I am aware that we have opportunity to have a teleneurology consult. Dr. Jones however was concerned that the patient needed a lumbar puncture. Patient and her family reluctant to receive a lumbar puncture because she is no longer having a headache. She initially had the headache prior but no longer has one and so they feel like her meningitis risk is low. Time: 16:52 Additional Reevaluation(s): 17:[address] Major who is general neurology at [facility]. She indicated because there is no focal neurologic deficits and no harm to the patient she suggested that the patient go home and get an outpatient workup. She suggested checking for vitamin deficiencies, MRI, and EEG. Vital Signs Vital signs: Vital Signs Temperature 98.3 F 12/01/24 12:11 Pulse Rate 119 H 12/01/24 12:11 Respiratory Rate 18 12/01/24 12:11 Blood Pressure 122/68 12/01/24 12:11 Pulse Oximetry 94 L 12/01/24 12:11 Oxygen Delivery Method Room Air 12/01/24 12:11 Temperature 98.3 F 12/01/24 12:11 Pulse Rate 100 H 12/01/24 18:11 Respiratory Rate 20 12/01/24 18:11 Blood Pressure 102/55 12/01/24 18:11 Pulse Oximetry 95 12/01/24 18:11 Oxygen Delivery Method Room Air 12/01/24 18:11 Medical Decision Making MDM Narrative Medical decision making narrative: In summary the patient is a 54-year-old female presenting to the emergency department with her daughter and mother for altered level of consciousness. Patient improved with intravenous fluids, electrolyte supplementation and stress dose of steroids. Patient was found to have a urinary tract infection and improved further with the administration of antibiotic therapy. She will continue antibiotic therapy. I did personally ambulate this patient in the department by myself and she is found now to have a stable and upright gait. I do feel safe discharging her to home with outpatient follow-up with her personal neurologist. Differential Diagnosis Differential Diagnosis: Stroke, TIA, Sina's crisis, dehydration, electrolyte abnormality, drug i Medical Records Medical records reviewed: Yes I reviewed the patient's medical records Lab Data Lab results reviewed: Yes I reviewed the patient's lab results Labs: Lab Results 12/01/24 12/01/24 12/01/24 Range/Units 12:16 12:33 16:10 WBC 9.7 (4.0-11.0) 10^3/uL RBC 4.00 L (4.20-5.40) 10^6/uL Hgb 11.6 L (12.0-16.0) g/dL Hct 34.9 L (36.0-48.0) % MCV 87.3 (81.0-99.0) fL MCH 29.0 (26.7-34.0) pg MCHC 33.2 (29.9-35.2) g/dL RDW 12.7 (11.0-15.0) % Plt Count 194 (150-450) 10^3/uL MPV 11.3 (9.5-13.5) fL Neut % (Auto) 85.9 H (43.0-75.0) % Lymph % (Auto) 7.7 L (20.5-60.0) % Taliaferro % (Auto) 5.8 (1.7-12.0) % Eos % (Auto) 0.0 L (0.9-7.0) % Baso % (Auto) 0.2 (0.2-2.0) % Neut # (Auto) 8.4 H (1.4-6.5) 10^3/uL Lymph # (Auto) 0.8 L (1.2-3.8) 10^3/uL Taliaferro # (Auto) 0.6 (0.3-0.8) 10^3/uL Eos # (Auto) 0.0 (0.0-0.7) 10^3/uL Baso # (Auto) 0.0 (0.0-0.1) 10^3/uL Abs Immat Gran (auto) 0.04 H (0.00-0.03) 10^3/uL Imm/Tot Granulo (auto) 0.4 (0.0-0.5) % Sodium 135 L (136-145) mmol/L Potassium 2.9 L* (3.5-5.1) mmol/L Chloride 102 (98-107) mmol/L Carbon Dioxide 23.8 (21.0-32.0) mmol/L Anion Gap 12.1 BUN 20.0 H (7.0-18.0) mg/dL Creatinine 1.66 H (0.55-1.02) mg/dL Est GFR ( Amer) 39 L (>=60 mL/min/1.73m^2) Est GFR (Non-Af Amer) 32 L (>=60 mL/min/1.73m^2) BUN/Creatinine Ratio 12.0 Glucose 209 H (74-106) mg/dL Calcium 9.0 (8.5-10.1) mg/dL Magnesium 1.5 L (1.8-2.4) mg/dL Total Bilirubin 1.8 H (0.2-1.0) mg/dL AST 38 H (15-37) U/L ALT 34 (14-59) U/L Alkaline Phosphatase 73 (46-116) U/L Total Protein 8.4 H (6.4-8.2) g/dL Albumin 2.6 L (3.4-5.0) g/dL Globulin 5.8 g/dL Albumin/Globulin Ratio 0.4 TSH & Free T4 Interp 0.362 (0.358-3.740) uIU/mL Urine Color Yellow (YELLOW) Urine Clarity Sl cloudy (CLEAR) Urine pH 5.5 (5.0-9.0) Ur Specific Caraway >=1.030 A (1.005-1.025) Urine Protein >=300 A (NEG/TRACE) mg/dL Urine Glucose (UA) Negative (NEGATIVE) mg/dL Urine Ketones Negative (NEGATIVE) mg/dL Urine Occult Blood Small A (NEGATIVE) Urine Nitrite Negative (NEGATIVE) Urine Bilirubin Negative (NEGATIVE) Urine Urobilinogen 2.0 A (0.2-1.0) EU/dL Ur Leukocyte Esterase Moderate A (NEGATIVE) Urine RBC 0-2 (0-2) #/HPF Urine WBC 50-75 A (NONE SEEN) #/HPF Ur Squamous Epith Cells Few A (NONE/RARE) #/LPF Urine Crystals None seen (None Seen) #/HPF Urine Bacteria Moderate A (NONE SEEN) #/HPF Urine Casts None seen (NONE SEEN) #/LPF Urine Mucus None seen (NONE SEEN) Ur [place] Indicated[place] [place] Opi[place] Screen Negative (NEGATIVE) Ur Buprenorphine Scrn Negative (NEGATIVE) Ur Oxycodone Screen Negative (NEGATIVE) Urine Methadone Screen Negative (NEGATIVE) Ur Barbiturates Screen Negative (NEGATIVE) U Tricyclic Antidepress Negative (NEGATIVE) Ur Phencyclidine Scrn Negative (NEGATIVE) Ur Amphetamines Screen Negative (NEGATIVE) U Methamphetamines Scrn Negative (NEGATIVE) U Benzodiazepines Scrn Negative (NEGATIVE) Urine Cocaine Screen Negative (NEGATIVE) U Cannabinoids Screen Negative (NEGATIVE) Ethanol Quant <3 mg/dL SARS-CoV-2 Ag (CV2AG) Negative (NEGATIVE) Imaging Data CT scan - head: Radiologist's impression: ITS Impressions Head CT 12/01/24 12:35 IMPRESSION: Normal noncontrasted CT brain. Impression dictated by: Jose Luis Grubbs M.D. 12/01/2024 1:01 PM Dictation Location: [employer] Electronically authenticated by: [id number] Y Date: 12/01/2024 13:01 Chest X-Ray 12/01/24 12:37 IMPRESSION: There is platelike scarring or atelectasis at the right lung base. No focal consolidation otherwise. Impression dictated by: Jose Luis Grubbs M.D. 12/01/2024 1:03 PM Dictation Location: [employer] Electronically authenticated by: [id number] Y Date: 12/01/2024 13:03 ECG Data Attestation: I personally reviewed and interpreted this ECG as follows: Interpretation: Twelve-lead EKG: Twelve-lead EKG reveals sinus rhythm that is tachycardic with a ventricular rate of 112 bpm. The NJ interval and QRS duration are normal. QTc is not prolonged. Small QRS complexes are present. No evidence of ST segment elevation or depressions this infarction or ischemia. There is evidence of 1 premature atrial complex. Summary: Abnormal EKG. Critical Care Time Critical Care Time Critical Care Time: Yes Total Critical Care Time: 42 Attestation: Total 42 minutes of critical care time was needed for the treatment and prevention of clinically significant and life-threatening neurologic conditions which required immediate assessment for metabolic and stroke like etiologies for her altered level of consciousness. It required an extensive history, numerous repeat physical examinations, cognitive consideration of the case, documenting the patient's medical record where they were in the emergency department, and speaking with numerous consultants over the. Her emergency department stay. Discharge Plan Discharge Chief Complaint: Neuro Symptoms/Deficit Clinical Impression: Acute kidney injury, Acute hypokalemia, Hypomagnesemia, UTI (urinary tract infection), Jersey disease Patient Disposition: Home, Self-Care Time of Disposition Decision: 17:45 Condition: Good Mode of Transportation: Private Vehicle Prescriptions / Home Meds: New cephalexin 500 mg tablet 500 mg PO QID 10 Days Qty: 40 0RF ondansetron 4 mg tablet,disintegrating 4 mg PO Q6H PRN (Reason: nausea and vomiting) Qty: 14 0RF No Action bupropion HCl 150 mg tablet extended release 24 hr 150 mg PO DAILY chlorthalidone 25 mg tablet 25 mg PO DAILY nystatin 100,000 unit/gram powder 1 applic TOPICAL TID topiramate 200 mg capsule,sprinkle,ER 24hr 200 mg PO QAM trazodone 50 mg tablet 50 mg PO BEDTIME fexofenadine 180 mg tablet 180 mg PO Q24H levothyroxine 25 mcg tablet 25 mcg PO DAILY ferrous sulfate 325 mg (65 mg iron) tablet,delayed release (DR/EC) 325 mg PO DAILY paroxetine HCl 20 mg tablet 20 mg PO DAILY montelukast 10 mg tablet 10 mg PO DAILY prednisone 5 mg tablet 5 mg PO DAILY topiramate 50 mg tablet 200 mg PO HS tolterodine 4 mg capsule,extended release 24hr 4 mg PO Q24H nabumetone 500 mg tablet 500 mg PO BID acetaminophen [Aphen] 325 mg tablet 650 mg PO Q6H PRN (Reason: fever or pain) Print Language: Thai Instructions: Acute Kidney Injury (DC), Urinary Tract Infection in Women (ED), Hypokalemia (ED), Sina Disease (ED), Hypomagnesemia (ED) Additional Instructions: Please remember to take your antibiotics. The most important medication at this time is probably your steroid. If you develop any further nausea please take the prescribed nausea medication as well. 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 Thank you very much for trusting me with your care if you need anything or your symptoms return please report to the emergency department. Otherwise you should contact your neurologist tomorrow. Referrals: Blu Dodson ND [Primary Care Provider] - 1 week Discharge Date/Time: 12/01/24 18:13
[2024-12-01 16:19] LABS: Glucose Urine UA NEGATIVE (NEGATIVE)
[2024-12-01 16:37] LABS: Cannabinoid Screen Urine NEGATIVE (NEGATIVE); Methamphetamines Screen Urine NEGATIVE (NEGATIVE)
[2024-12-01 16:38] LABS: Tricyclic Antidepressant Urine NEGATIVE (NEGATIVE)
[2024-12-01 16:45] LABS: Cast Seen? NONE SEEN #/LPF (NONE SEEN); Crystals Seen? None Seen #/HPF (None Seen); Urine Culture Indicated YES-FRMC
== END 2024-12-01 18:13 | disposition home or self-care (01) ==
PROVIDERS: Emergency Provider Emergency Medicine; PCP Student in an Organized Health Care Education/Training Program
DX: N39.0 Urinary tract infection, site not specified (principal); N17.9 Acute kidney failure, unspecified; E27.1 Primary adrenocortical insufficiency; E87.6 Hypokalemia; E83.42 Hypomagnesemia; I10 Essential (primary) hypertension
CPT/HCPCS: 36415; 70450; 71046; 80053; 80307; 80320; 81001; 82533; 83735; 84443; 85025; 87086; 87811; 93005; 96361; 96365; 96367; 96375; 99285; J0696; J1720; J2405; J3475